=== PATIENT | female | born 1980 | race American Indian/Alaskan Native ===

== ENCOUNTER 2016-08-14 07:25 | Day surgery (SDC) | payer OTHER ==
--- NOTE | 2016-08-13 14:39 | Short Stay Summary ---
Short Stay Documentation Date of service: 08/14/16 Narrative H&P: 35 yo G0 obese female with BMI of 47 who has recently had persistent vaginal bleeding with an inappropriate response to two separate courses of Provera (the first was 10mg x 10d, the second course was 20mg x 12d and followed an unsuccessful trial of Sprintec which she bled through. U/S is normal except for PCOS ovaries with "string of pearls" appearance. She has a lifelong hx of only 3-4 menses per year so PCOS is firmly established in her case. I tried to do a saline u/s in the office but I was never able to adequately distend the endometrial cavity despite multiple attempts to do so, suggesting a prolapsing endometrial polyp. With u/s the endometrial stripe was measured at 0.63 cm but looks larger that this on other views. and her bleeding issues are strongly suggestive of a polyp. So she is brought in for Hysterosocpy D&C and Myosure if needed--to establish whether or not she has an endometrial polyp or other emdometrial pathology. - History Principal diagnosis: dysfunctional Uterine bleeding Past Medical History: other (PCOS and Pre-diabetes on Metformin 500 qd) Past Surgical History: No surgical history Social history: no significant social history - Allergies and Medications Current Medications: Allergies No Known Allergies Allergy (Unverified 08/10/16 14:04) Home Medications Medication Instructions Recorded Confirmed Last Taken Type Cetirizine HCl [ZyrTEC] 10 mg PO DAILY 08/10/16 08/10/16 Unknown History Multivitamin Tab [Multiple Vitamin 1 each PO QDAY 08/10/16 08/10/16 Unknown History TAB (Theragran)] metFORMIN [Glucophage] 500 mg PO QDAY 08/10/16 08/10/16 Unknown History - Physical exam General appearance: no acute distress, well-nourished, obese Integumentary: no rash, no growths HEENT: Atraumatic Lungs: Clear to auscultation Breasts: normal Gastrointestinal: normal, no tenderness, no hepatomegaly, obese Female Genitourinary: normal Rectal Exam: deferred Extremities: normal temperature, normal color, Full ROM Neurological: Normal gait, Normal speech, Cranial nerves 3-12 NL - Brief post op/procedure progress note Date of procedure: 08/14/16 Pre-op diagnosis: DUB possible endometrial polyp Post-op diagnosis: same Procedure: Hysteroscopy, D&C and Myosure for a few very small endometrial polyps. Anesthesia: GETA Findings: Normal cervix and normal endometrial cavity with both ostia were eventually visualized. There were several small endometrial polyps scattered throughout the uterus. The uterine cavity could not be distended with the usual hysteroscope and required the use of the myoma sure system to achieve adequate distention of the urine cavity to facilitate visualization. Surgeon: MARINO SANTACRUZ Estimated blood loss: minimal Pathology: list (endometrial currettings and small polyps) Specimen disposition: to lab Condition: stable - Hospital course Hospital course: Patient did well, tolerated procedure well and was discharged to the PACU unit in good condition and a normal PACU course discharged home at the end of it. - Disposition Condition at discharge: Good Disposition: DISCHARGED TO HOME OR SELFCARE Short Stay Discharge Plan Activity: no restrictions, advance as tolerated, no driving until cleared by PCP Weight Bearing Status: Full Weight Bearing Diet: regular Follow up with: HEATHER MORALES MD [Primary Care Provider] - 7 Days Forms: Outpatient Surgery DC Inst. Prescriptions: Ibuprofen [Motrin 800 MG tab] 800 mg PO Q8HR PRN #30 tablet PRN Reason: Pain
[~2016-08-14 07:25] MED LIST: ANCEF/STERILE WATER 2 GM/20 ML 2 GM/20 ML SYRINGE IV NR; DECADRON ONE; DIPRIVAN 10 MG/ML IV ONE; LACTATED RINGERS 1,000 ML IV SCH; PEPCID PO NR; SUBLIMAZE ONE; VERSED IV NR; XYLOCAINE MPF 2% ONE; ZOFRAN ONE
--- NOTE | 2016-08-14 08:24 | Anesthesia Consultation ---
Anesthesia Consult and Med Hx Date of service: 08/14/16 - Airway ROM Head & Neck: Adequate Mental/Hyoid Distance: Adequate Mallampati Class: Class I Intubation Access Assessment: Good - Pulmonary Exam CTA: Yes - Cardiac Exam Cardiac Exam: RRR - Pre-Operative Health Status ASA Pre-Surgery Classification: ASA3 Proposed Anesthetic Plan: General - Pulmonary Hx Smoking: Yes (socially) - Central Nervous System Hx Psychiatric Problems: Yes - Gastrointestinal Hx Gastroesophageal Reflux Disease: Yes (food related) - Endocrine Hx Non-Insulin Dependent Diabetes: Yes (pre-diabetes) - Hematic Hx Sickle Cell Disease: Yes (Trait only) - Other Systems Hx Alcohol Use: Yes (occas) Hx Cancer: No Hx Obesity: Yes
--- NOTE | 2016-08-14 08:25 | Anesthesia Day of Surgery ---
Anesthesia Day of Surgery - Day of Surgery Patient Examined: Yes Patient H&P Reviewed: Yes Patient is NPO: Yes
[2016-08-14 09:04] LABS: Hematocrit 39.7 % (30.3-42.9); Hemoglobin 13.4 gm/dl (10.1-14.3)
[2016-08-14] MEDS ORDERED: SILVER NITRATE TP ONE (09:16)
[2016-08-14] MEDS ORDERED: ANCEF ONE ×2 (09:57)
[2016-08-14] MEDS ORDERED: NACL 0.9% IR ONE ×2 (10:02→10:29)
[2016-08-14] MEDS ORDERED: ePHEDrine SULFATE ONE (10:20)
--- NOTE | 2016-08-14 11:03 | Operative Report ---
Operative Report Operative Report: Date of procedure: 08/14/2016 Pre-operative diagnosis: Dysfunctional uterine bleeding unresponsive to several courses of hormonal manipulation cystic ovarian syndrome unsuccessful in-office saline infusion sonogram Post-operative diagnosis: Same plus normal endometrial cavity with normal tubal ostia visualized on both sides, shaggy endometrium with multiple very small endometrial polyps visualized and removed. Uterus sounded to 8 cm. Hematocrit 39.7, blood type AB+ Procedure name(s): Dilation and curettage with hysteroscopy was a station of minus sure system primarily to achieve adequate intrauterine distention Surgeon: Skylar Mao MD Director Diabetes: ROSE Anesthesia: GETA Findings: Normal intrauterine cavity with small polyps EBL: Minimal, less than 10 mL Procedure in detail: She was taken to the operating room, placed in the supine position. After adequate general endotracheal anesthesia was obtained she was prepped and draped in the dorsolithotomy position in the usual fashion. Surgical timeout was taken and all members of the team were attentive. The bladder was drained and a sterile fashion and productive of 30 mL of urine. The cervix was exposed with retractors and grasped transversely with a single-tooth tenaculum. The uterus was easily sounded to 8 cm the cervix was then serially dilated up, first to a #19 dilator and then ultimately to a #23. Initially, the hysteroscope was set up and handed to distending fluid and inserted into the uterus and visualization was extremely limited. Despite multiple attempts to distend the cavity and there was appear to be a good bit of shaggy endometrium and several polyps easily seen down at the lower uterine segment. Because of failure of distention the need to remove small polyps switched over to the MyoSure System. This was very helpful and distention was much better and intrauterine visualization was greatly improved The MyoSure device was used to easily remove several small polyps at this point, the fluid that was when and was around 100mL The system was then removed and the endometrial polyp forceps were used to explore the uterus and were not productive of additional tissue. In turn, a regular Crespo curet and a Margie curette were used to currette the interior of the uterus and productive of a small amount of additional tissue, none of which appeared to resemble polyps at this point. The procedure was then terminated and all instruments removed and lap count correct 3. Instrument count correct 3. The patient was awakened and discharged to recovery room in good condition
[2016-08-14] MEDS ORDERED: DILAUDID IV PRN ×2 (11:19→11:30)
[2016-08-14] MEDS ORDERED: TORADOL IV ONE ×2 (11:19→11:30)
[2016-08-14 12:36] VITALS: BP 132/83
== END 2016-08-14 12:55 | disposition home or self-care (01) ==
LOC: OR 07:25
PROVIDERS: ATTEND Obstetrics & Gynecology
DX: N84.0 Polyp of corpus uteri (principal); K21.9 Gastro-esophageal reflux disease without esophagitis; E28.2 Polycystic ovarian syndrome; F17.210 Nicotine dependence, cigarettes, uncomplicated; D57.3 Sickle-cell trait; E66.9 Obesity, unspecified; Z68.42 Body mass index [BMI] 45.0-49.9, adult; Z79.899 Other long term (current) drug therapy; Z72.89 Other problems related to lifestyle
CPT/HCPCS: 36415; 58558; 81025; 82962; 85014; 85018; 86850; 86900; 86901; 88305; A4217; J0690; J1100; J1170; J1885; J2250; J2405; J2704; J3010; J7120